=== PATIENT | female | born 2000 | race African-American/Black ===

== ENCOUNTER 2018-01-12 18:07 | Emergency (ER) | payer SELFPAY ==
--- NOTE | 2018-01-12 19:49 | EDM.PDOC ---
ED HPI GENERAL MEDICAL PROBLEM - General Chief Complaint: BODY TECHNICIAN/PAINTER Problem Stated Complaint: REQUESTING TEST Time Seen by Provider: 01/12/18 19:38 Source of Information: Reports: Patient History Limitations: Reports: No Limitations - History of Present Illness INITIAL COMMENTS - FREE TEXT/NARRATIVE: 17 year old female presents for confirmation of her . Reports her LMP was 11/27 to 11/30. This was a planned . She has taken 3 at home tests which were all positive. She reports symptoms of slight nausea and minor pelvic cramping. She did feel lightheaded for about 1 week but this has resolved. No dysuria, hematuria, vaginal bleeding, syncope or back pain. Reports she frequently gets headaches and these have increased in frequency. She has not taken any tylenol for this. She is a . - Related Data Allergies Allergy/AdvReac Type Severity Reaction Status Date / Time No Known Allergies Allergy Verified 01/12/18 18:30 Home Meds: Home Meds . [No Known Home Meds] 01/12/18 [History] Past Medical History - Past Health History Medical/Surgical History: Denies Medical/Surgical History Social & Family History - Tobacco Use Smoking Status *Q: Never Smoker - Caffeine Use Caffeine Use: Reports: Soda, Tea - Recreational Drug Use Recreational Drug Use: No ED ROS GENERAL - Review of Systems Review Of Systems: See Below Cardiovascular: Reports: Lightheadedness (x1 week, resolved) GI/Abdominal: Denies: Abdominal Pain : Reports: Pain (minor pelvic cramping). Denies: Dysuria Musculoskeletal: Denies: Back Pain Neurological: Reports: Headache. Denies: Syncope ED EXAM - Physical Exam Exam: See Below Exam Limited By: No Limitations General Appearance: Alert, WD/WN, No Apparent Distress, Thin Respiratory/Chest: No Respiratory Distress, Lungs Clear, Normal Breath Sounds Cardiovascular: Normal Peripheral Pulses, Regular Rate, Rhythm, No Murmur GI/Abdominal Exam: Normal Bowel Sounds, Soft, Non-Tender Neurological: Alert, Oriented, Normal Cognition Psychiatric: Normal Affect, Normal Mood Skin Exam: Warm, Dry, Normal Color Course - Vital Signs Last Recorded V/S: Last Vital Signs Temp 99.2 F 01/12/18 18:22 Pulse 84 01/12/18 18:22 Resp 20 01/12/18 18:22 BP 110/64 01/12/18 18:22 Pulse Ox - Orders/Labs/Meds Labs: Laboratory Tests 01/12/18 Range/Units 19:20 HCG, Quant 19035.0 mIU/mL - Re-Assessments/Exams Free Text/Narrative Re-Assessment/Exam: 01/12/18 21:00 Reviewed the hcg with the patient. Her level correlates with a 6 week . RAZA is 2-26. She reports minor pelvic cramping which is likely implantation and uterine stretching. No vaginal bleeding. I see no reason for an ultrasound or pelvic exam tonight. Referred to Ob. Encouraged to take a vitamin. discharge instructions as documented. Departure - Departure Time of Disposition: 21:00 Disposition: Home, Self-Care 01 Condition: Good Clinical Impression: - Discharge Information Referrals: PCP,None [Primary Care Provider] - Forms: ED Department Discharge Additional Instructions: Recommend starting a vitamin. May take Tylenol as needed for headaches and cramps. Do not take NSAIDs such as Aleve, ibuprofen etc. while you're . make sure your are drinking plenty of fluids. You should drink about half your body weight in ounces and fluids every day. Follow-up with OB when you are about 10-12 weeks for you first OB appointment. Follow up with OB sooner or return to the ER if you experience any severe pelvic pain or cramping, vaginal bleeding, syncope or any other concerning symptom.
== END 2018-01-12 20:25 | disposition home or self-care (01) ==
LOC: JD.ED 18:07
DX: O99.89 Other specified diseases and conditions complicating pregnancy, childbirth and the puerperium (principal); R10.2 Pelvic and perineal pain; Z3A.08 8 weeks gestation of pregnancy
CPT/HCPCS: 36415; 84702; 99282